=== PATIENT | female | born 1995 | race Caucasian/White ===

== ENCOUNTER 2017-09-27 03:12 | Emergency (ER) | payer MEDICAID ==
[~2017-09-27] VITALS: Ht 160 cm; Wt 102.3 kg
[2017-09-27 03:16] VITALS: BP 145/90
[2017-09-27] MEDS ORDERED: ketorolac tromethamine 15mg/ml inj. IM ONE (03:35)
[2017-09-27] MEDS ORDERED: clindamycin 150mg capsule PO ONE (03:35)
[2017-09-27] MEDS ORDERED: HYDR-3965 PO (03:41)
[2017-09-27] MEDS ORDERED: CLIN150C2 PO (03:41)
== END 2017-09-27 03:54 | disposition home or self-care (01) ==
LOC: ER 03:13
DX: K05.10 Chronic gingivitis, plaque induced (principal); I10 Essential (primary) hypertension; Z98.890 Other specified postprocedural states
CPT/HCPCS: 99283

== ENCOUNTER 2021-01-26 19:52 | Emergency (ER) | payer MEDICAID ==
[~2021-01-26] VITALS: Ht 162.6 cm; Wt 95.5 kg
[2021-01-26 20:35] LABS: BASOPHILS % (AUTO) 0.3 % (0-1); EOSINOPHILS # (AUTO) 0.3 X10'3 (0-0.9); EOSINOPHILS % (AUTO) 2.6 % (0-6); HEMATOCRIT 39.5 % (35.0-45.0); HEMOGLOBIN 13.5 g/dl (12.0-16.0); LYMPHOCYTES # (AUTO) 1.7 X10'3 (1.1-4.8); LYMPHOCYTES % (AUTO) 13.9 % (21-51); MEAN CORPUSCULAR HEMOGLOBIN 28.6 PG (27.0-31.0); MEAN CORPUSCULAR HGB CONC 34.1 g/dL (33.0-36.5); MEAN PLATELET VOLUME 8.6 FL (7.4-10.4); MONOCYTES # (AUTO) 0.8 X10'3 (0-0.9); MONOCYTES % (AUTO) 6.2 % (2-12); NEUTROPHILS # (AUTO) 9.6 X10'3 (1.8-7.7); PLATELET COUNT 247 X10'3 (140-440); RED CELL DISTRIBUTION WIDTH 13.3 % (11.5-14.5); WHITE BLOOD COUNT 12.4 X10'3 (4.5-11.0)
[2021-01-26] MEDS ORDERED: ipratropium/albuterol 3ml nebule NEB PRN (20:45)
[2021-01-26 20:53] LABS: ALANINE AMINOTRANSFERASE 78 U/L (12-78); ALBUMIN 3.8 G/DL (3.4-5.0); ALBUMIN/GLOBULIN RATIO 0.8 (1.1-1.5); ALKALINE PHOSPHATASE 88 IU/L (46-116); ANION GAP 11 (8-16); ASPARTATE AMINO TRANSFERASE 30 U/L (10-37); BILIRUBIN,TOTAL 0.3 MG/DL (0.1-1.0); BLOOD UREA NITROGEN 14 MG/DL (7-18); BUN/CREATININE RATIO 17.7 (6.6-38.0); CHLORIDE 100 MMOL/L (99-107); CREATININE 0.79 MG/DL (0.40-0.90); GLUCOSE 151 MG/DL (70-104); POTASSIUM 3.7 MMOL/L (3.5-5.1); SODIUM 137 MMOL/L (135-145); TOTAL CARBON DIOXIDE 25.8 MMOL/L (24-32); TOTAL PROTEIN 8.4 G/DL (6.4-8.2); eGFR 88 ML/MIN
[2021-01-26] MEDS ORDERED: METH4TAB81 PO (21:22)
[2021-01-26] MEDS ORDERED: ALBU18HF2 INH (21:23)
[2021-01-26] MEDS ORDERED: PRED20TA PO (21:49)
[2021-01-26 23:07] LABS: D-DIMER 0.34 MG/L FEU (0-0.50)
[2021-01-26 23:36] VITALS: BP 149/91
== END 2021-01-26 23:38 | disposition home or self-care (01) ==
LOC: ER 19:53
DX: J20.1 Acute bronchitis due to Hemophilus influenzae (principal); I10 Essential (primary) hypertension
CPT/HCPCS: 36415; 71045; 80053; 83880; 84484; 85025; 85379; 93005; 94640; 94760; 99285

== ENCOUNTER 2021-02-01 15:47 | Emergency (ER) | payer MEDICAID ==
[~2021-02-01] VITALS: Ht 160 cm; Wt 118.0 kg
[~2021-02-01 15:47] MED LIST: ALBU18HF2 INH; PRED20TA PO
[2021-02-01 16:13] VITALS: BP 175/95
[2021-02-01] MEDS ORDERED: OFLO5DRO RIGHTEYE ×2 (16:24→16:31)
== END 2021-02-01 16:44 | disposition home or self-care (01) ==
LOC: ER 15:47
DX: H10.89 Other conjunctivitis (principal); H02.843 Edema of right eye, unspecified eyelid; R05.9 Cough, unspecified; I10 Essential (primary) hypertension; Z98.890 Other specified postprocedural states; Z60.2 Problems related to living alone; Z79.2 Long term (current) use of antibiotics; Z79.899 Other long term (current) drug therapy
CPT/HCPCS: 99283

== ENCOUNTER 2021-02-11 16:34 | Emergency (ER) | payer MEDICAID ==
[~2021-02-11] VITALS: Ht 157.5 cm; Wt 118.2 kg
[~2021-02-11 16:34] MED LIST changes: -PRED20TA PO
[2021-02-11 17:38] LABS: BASOPHILS # (AUTO) 0.1 X10'3 (0-0.2); BASOPHILS % (AUTO) 0.5 % (0-1); EOSINOPHILS # (AUTO) 0.5 X10'3 (0-0.9); EOSINOPHILS % (AUTO) 4.9 % (0-6); HEMATOCRIT 41.2 % (35.0-45.0); HEMOGLOBIN 14.2 g/dl (12.0-16.0); LYMPHOCYTES # (AUTO) 2.3 X10'3 (1.1-4.8); LYMPHOCYTES % (AUTO) 21.7 % (21-51); MEAN CORPUSCULAR HGB CONC 34.5 g/dL (33.0-36.5); MEAN CORPUSCULAR VOLUME 84.1 FL (78-98); MEAN PLATELET VOLUME 8.5 FL (7.4-10.4); MONOCYTES # (AUTO) 0.5 X10'3 (0-0.9); MONOCYTES % (AUTO) 4.4 % (2-12); NEUTROPHILS # (AUTO) 7.4 X10'3 (1.8-7.7); NEUTROPHILS % (AUTO) 68.5 % (42-75); PLATELET COUNT 240 X10'3 (140-440); RED CELL DISTRIBUTION WIDTH 13.2 % (11.5-14.5); WHITE BLOOD COUNT 10.7 X10'3 (4.5-11.0)
[2021-02-11 17:56] LABS: ALANINE AMINOTRANSFERASE 53 U/L (12-78); ALBUMIN 3.5 G/DL (3.4-5.0); ALBUMIN/GLOBULIN RATIO 0.7 (1.1-1.5); ALKALINE PHOSPHATASE 85 IU/L (46-116); ANION GAP 9 (8-16); ASPARTATE AMINO TRANSFERASE 22 U/L (10-37); BILIRUBIN,TOTAL 0.4 MG/DL (0.1-1.0); BLOOD UREA NITROGEN 9 MG/DL (7-18); BUN/CREATININE RATIO 11.8 (6.6-38.0); CALCIUM 8.7 MG/DL (8.5-10.1); CHLORIDE 101 MMOL/L (99-107); CREATININE 0.76 MG/DL (0.40-0.90); GLUCOSE 179 MG/DL (70-104); POTASSIUM 3.9 MMOL/L (3.5-5.1); SODIUM 136 MMOL/L (135-145); TOTAL CARBON DIOXIDE 25.8 MMOL/L (24-32); TOTAL PROTEIN 8.2 G/DL (6.4-8.2); eGFR > 90 ML/MIN
[2021-02-11] MEDS ORDERED: ALBU8HFA PO (19:03)
[2021-02-11 19:18] VITALS: BP 186/102
== END 2021-02-11 19:21 | disposition home or self-care (01) ==
LOC: ER 16:37
DX: J45.901 Unspecified asthma with (acute) exacerbation (principal); Z20.822 Contact with and (suspected) exposure to COVID-19; I10 Essential (primary) hypertension; Z98.891 History of uterine scar from previous surgery; Z79.899 Other long term (current) drug therapy
CPT/HCPCS: 36415; 71045; 80053; 85025; 87635; 99284; C9803

== ENCOUNTER 2021-02-23 13:44 | Emergency (ER) | payer MEDICAID ==
[~2021-02-23] VITALS: Ht 157.5 cm; Wt 118.2 kg
[~2021-02-23 13:44] MED LIST changes: +ALBU8HFA PO
[2021-02-23] MEDS ORDERED: methylPREDNISolone sod succ 125mg/2ml vial IV ONE (13:50)
[2021-02-23] MEDS ORDERED: albuterol 2.5 MG/3 ML nebule CONTNEB PRN (13:50)
[2021-02-23] MEDS ORDERED: normal saline 1000ML IV soln IVB ONE (13:50)
[2021-02-23 14:03] LABS: BASOPHILS % (AUTO) 0.4 % (0-1); EOSINOPHILS # (AUTO) 0.9 X10'3 (0-0.9); EOSINOPHILS % (AUTO) 9.9 % (0-6); HEMATOCRIT 41.8 % (35.0-45.0); HEMOGLOBIN 14.3 g/dl (12.0-16.0); LYMPHOCYTES # (AUTO) 2.2 X10'3 (1.1-4.8); LYMPHOCYTES % (AUTO) 22.5 % (21-51); MEAN CORPUSCULAR HEMOGLOBIN 28.7 PG (27.0-31.0); MEAN CORPUSCULAR HGB CONC 34.1 g/dL (33.0-36.5); MEAN PLATELET VOLUME 8.2 FL (7.4-10.4); MONOCYTES # (AUTO) 0.6 X10'3 (0-0.9); NEUTROPHILS # (AUTO) 5.8 X10'3 (1.8-7.7); NEUTROPHILS % (AUTO) 61.2 % (42-75); PLATELET COUNT 295 X10'3 (140-440); RED BLOOD COUNT 4.97 X10'6 (4.20-5.60); RED CELL DISTRIBUTION WIDTH 13.9 % (11.5-14.5); WHITE BLOOD COUNT 9.6 X10'3 (4.5-11.0)
--- NOTE | 2021-02-23 14:05 | NUR ---
rt at bedside
--- NOTE | 2021-02-23 14:13 | NUR ---
PT NOW SPEAKING IN FULL SENTENCES AFTER START OF CONTINOUS BREATHING TX. RT AT BEDSIDE.
[2021-02-23 14:18] LABS: ALANINE AMINOTRANSFERASE 61 U/L (12-78); ALBUMIN 3.9 G/DL (3.4-5.0); ALBUMIN/GLOBULIN RATIO 0.9 (1.1-1.5); ALKALINE PHOSPHATASE 84 IU/L (46-116); ANION GAP 11 (8-16); ASPARTATE AMINO TRANSFERASE 24 U/L (10-37); BILIRUBIN,TOTAL 0.4 MG/DL (0.1-1.0); BLOOD UREA NITROGEN 11 MG/DL (7-18); BUN/CREATININE RATIO 13.8 (6.6-38.0); CALCIUM 8.8 MG/DL (8.5-10.1); CHLORIDE 101 MMOL/L (99-107); GLUCOSE 107 MG/DL (70-104); POTASSIUM 3.8 MMOL/L (3.5-5.1); SODIUM 137 MMOL/L (135-145); TOTAL CARBON DIOXIDE 24.7 MMOL/L (24-32); TOTAL PROTEIN 8.4 G/DL (6.4-8.2); eGFR 87 ML/MIN
[2021-02-23] MEDS ORDERED: PRED20TA PO (15:38)
[2021-02-23] MEDS ORDERED: albuterol 2.5 MG/3 ML nebule NEB ONE (15:40)
--- NOTE | 2021-02-23 15:45 | NUR ---
DR. DEMARCO AT BEDSIDE.
--- NOTE | 2021-02-23 16:00 | NUR ---
RT AT BEDSIDE
[2021-02-23 16:11] VITALS: BP 144/90
== END 2021-02-23 16:43 | disposition home or self-care (01) ==
LOC: ER 13:44
DX: J45.901 Unspecified asthma with (acute) exacerbation (principal); R05.9 Cough, unspecified; R00.0 Tachycardia, unspecified; I10 Essential (primary) hypertension; Z98.890 Other specified postprocedural states; Z60.2 Problems related to living alone; Z79.899 Other long term (current) drug therapy
CPT/HCPCS: 36415; 71045; 80053; 85025; 94640; 94644; 96374; 99285; J2930; J7030; 94760; A7015

== ENCOUNTER 2021-05-24 23:56 | Emergency (ER) | payer MEDICAID ==
[~2021-05-24] VITALS: Ht 160 cm; Wt 127.3 kg
[~2021-05-24 23:56] MED LIST changes: -ALBU8HFA PO
[2021-05-25] MEDS ORDERED: normal saline 1000ml 1,000 ML IV ONE ×2 (00:30→07:15)
[2021-05-25] MEDS ORDERED: acetaminophen 325mg tablet PO ONE (00:30)
[2021-05-25] MEDS ORDERED: iohexol 300mg/ml 100ml inj. ONE (00:47)
[2021-05-25 00:51] LABS: BASOPHILS % (AUTO) 0.4 % (0-1); EOSINOPHILS # (AUTO) 0.3 X10'3 (0-0.9); EOSINOPHILS % (AUTO) 3.7 % (0-6); HEMATOCRIT 40.3 % (35.0-45.0); HEMOGLOBIN 13.6 g/dl (12.0-16.0); LYMPHOCYTES # (AUTO) 2.5 X10'3 (1.1-4.8); LYMPHOCYTES % (AUTO) 27.9 % (21-51); MEAN CORPUSCULAR HEMOGLOBIN 28.8 PG (27.0-31.0); MEAN CORPUSCULAR HGB CONC 33.9 g/dL (33.0-36.5); MEAN PLATELET VOLUME 8.7 FL (7.4-10.4); MONOCYTES # (AUTO) 0.8 X10'3 (0-0.9); MONOCYTES % (AUTO) 8.7 % (2-12); NEUTROPHILS # (AUTO) 5.3 X10'3 (1.8-7.7); NEUTROPHILS % (AUTO) 59.3 % (42-75); PLATELET COUNT 274 X10'3 (140-440); RED BLOOD COUNT 4.74 X10'6 (4.20-5.60); RED CELL DISTRIBUTION WIDTH 13.7 % (11.5-14.5); WHITE BLOOD COUNT 8.9 X10'3 (4.5-11.0)
[2021-05-25 00:56] LABS: ALANINE AMINOTRANSFERASE 48 U/L (12-78); ALBUMIN 3.6 G/DL (3.4-5.0); ALBUMIN/GLOBULIN RATIO 0.7 (1.1-1.5); ALKALINE PHOSPHATASE 94 IU/L (46-116); ANION GAP 5 (8-16); ASPARTATE AMINO TRANSFERASE 23 U/L (10-37); BILIRUBIN,TOTAL 0.3 MG/DL (0.1-1.0); BLOOD UREA NITROGEN 14 MG/DL (7-18); BUN/CREATININE RATIO 19.7 (6.6-38.0); CALCIUM 9.2 MG/DL (8.5-10.1); CHLORIDE 105 MMOL/L (99-107); CREATININE 0.71 MG/DL (0.40-0.90); GLUCOSE 94 MG/DL (70-104); POTASSIUM 3.9 MMOL/L (3.5-5.1); SODIUM 137 MMOL/L (135-145); TOTAL CARBON DIOXIDE 26.8 MMOL/L (24-32); TOTAL PROTEIN 8.5 G/DL (6.4-8.2); eGFR > 90 ML/MIN
[2021-05-25 01:17] LABS: LIPASE 82 U/L (73-393)
[2021-05-25 01:19] LABS: BETA HCG,QUANTITATIVE 6118 mIU/ml
[2021-05-25 02:03] LABS: URINE HCG POSITIVE (NEG)
[2021-05-25 02:08] LABS: CLARITY,URINE SLIGHTLY CLOUDY (Clear); COLOR,URINE YELLOW (Yellow); GLUCOSE, URINE NEGATIVE (Neg); KETONES,URINE TRACE mg/dl (Neg); LEUKOCYTE ESTERASE ,URINE NEGATIVE (Neg); NITRITES, URINE NEGATIVE (Neg); OCCULT BLOOD,URINE MODERATE (Neg); PH,URINE 5.5 (4.8-8.0); PROTEIN,URINE NEGATIVE (Neg); UROBILINOGEN,URINE 0.2 E.U/dL (0.2-1.0)
[2021-05-25 02:10] LABS: UA COLLECTION TYPE CLN CATCH MIDSTREAM
[2021-05-25 02:15] LABS: RBC,URINE 20-50 /HPF (0-2)
[2021-05-25 02:16] LABS: BACTERIA,URINE NONE SEEN /HPF (Neg); MUCUS STRANDS MODERATE /LPF (Neg); SQUAMOUS EPITHELIAL CELL,UR MANY /LPF (FEW)
[2021-05-25] MEDS ORDERED: piperacillin/tazo 3.375gm/50ml 50 ML IV ONE (03:10)
[2021-05-25 08:40] VITALS: BP 163/82
== END 2021-05-25 08:49 | disposition short-term general hospital (02) ==
LOC: ER 23:56
DX: O07.4 Failed attempted termination of pregnancy without complication (principal); Z20.822 Contact with and (suspected) exposure to COVID-19; R50.9 Fever, unspecified; R11.0 Nausea; I10 Essential (primary) hypertension; J45.909 Unspecified asthma, uncomplicated; Z98.891 History of uterine scar from previous surgery; Z79.899 Other long term (current) drug therapy
CPT/HCPCS: 36415; 74177; 76801; 80053; 81001; 81025; 83605; 83690; 84145; 84702; 85025; 87040; 87635; 96361; 96365; 99285; C9803; J2543; J7030; Q9967

== ENCOUNTER 2022-03-02 15:15 | Emergency (ER) | payer MEDICAID ==
[~2022-03-02] VITALS: Ht 160 cm; Wt 122.0 kg
[2022-03-02 16:19] VITALS: BP 148/75
== END 2022-03-02 16:56 | disposition home or self-care (01) ==
LOC: ER 15:15
DX: U07.1 COVID-19 (principal); R05.9 Cough, unspecified; R50.9 Fever, unspecified; H92.02 Otalgia, left ear; I10 Essential (primary) hypertension; J45.909 Unspecified asthma, uncomplicated; Z98.890 Other specified postprocedural states; Z60.2 Problems related to living alone; Z79.899 Other long term (current) drug therapy
CPT/HCPCS: 87502; 87503; 87635; 99283; C9803

== ENCOUNTER 2023-06-09 19:21 | Emergency (ER) | payer MEDICAID ==
[~2023-06-09] VITALS: Ht 160 cm; Wt 122.0 kg
[2023-06-09 19:32] VITALS: BP 159/99; PULSE 89; RESP 16; TEMP 98.2; O2SAT 99
[2023-06-09 19:50] LABS: BASOPHILS # (AUTO) 0.1 X10'3 (0-0.2); BASOPHILS % (AUTO) 0.5 % (0-1); EOSINOPHILS # (AUTO) 0.3 X10'3 (0-0.9); EOSINOPHILS % (AUTO) 2.1 % (0-6); HEMATOCRIT 41.6 % (35.0-45.0); HEMOGLOBIN 13.9 g/dl (12.0-16.0); LYMPHOCYTES # (AUTO) 2.7 X10'3 (1.1-4.8); LYMPHOCYTES % (AUTO) 21.9 % (21-51); MEAN CORPUSCULAR HEMOGLOBIN 29.4 PG (27.0-31.0); MEAN CORPUSCULAR HGB CONC 33.4 g/dL (33.0-36.5); MEAN CORPUSCULAR VOLUME 88.1 FL (78-98); MEAN PLATELET VOLUME 9.2 FL (7.4-10.4); MONOCYTES # (AUTO) 0.8 X10'3 (0-0.9); MONOCYTES % (AUTO) 6.1 % (2-12); NEUTROPHILS # (AUTO) 8.5 X10'3 (1.8-7.7); NEUTROPHILS % (AUTO) 69.4 % (42-75); PLATELET COUNT 280 X10'3 (140-440); RED BLOOD COUNT 4.72 X10'6 (4.20-5.60); RED CELL DISTRIBUTION WIDTH 13.7 % (11.5-14.5); WHITE BLOOD COUNT 12.2 X10'3 (4.5-11.0)
[2023-06-09 20:00] LABS: ALANINE AMINOTRANSFERASE 166 U/L (12-78); ALBUMIN 3.9 G/DL (3.4-5.0); ALBUMIN/GLOBULIN RATIO 0.9 (1.1-1.5); ALKALINE PHOSPHATASE 92 IU/L (46-116); ANION GAP 11 (8-16); ASPARTATE AMINO TRANSFERASE 41 U/L (10-37); BILIRUBIN,TOTAL 0.4 MG/DL (0.1-1.0); BLOOD UREA NITROGEN 14 MG/DL (7-18); BUN/CREATININE RATIO 16.9 (10.0-20.0); CALCIUM 9.1 MG/DL (8.5-10.1); CHLORIDE 104 MMOL/L (99-107); CREATININE 0.83 MG/DL (0.40-0.90); GLUCOSE 134 MG/DL (70-104); LIPASE 31 U/L (16-77); SODIUM 141 MMOL/L (135-145); TOTAL CARBON DIOXIDE 26.2 MMOL/L (24-32); TOTAL PROTEIN 8.4 G/DL (6.4-8.2); eCRCL 83 ML/MIN; eGFR 82 ML/MIN
[2023-06-09 21:55] LABS: BILIRUBIN,URINE NEGATIVE (Neg); CLARITY,URINE CLOUDY (Clear); COLOR,URINE YELLOW (Yellow); GLUCOSE, URINE NEGATIVE (Neg); KETONES,URINE NEGATIVE (Neg); LEUKOCYTE ESTERASE ,URINE MODERATE (Neg); NITRITES, URINE POSITIVE (Neg); OCCULT BLOOD,URINE LARGE (Neg); PROTEIN,URINE 100 mg/dl (Neg); URINE HCG NEGATIVE (NEG); UROBILINOGEN,URINE 0.2 E.U/dL (0.2-1.0)
[2023-06-09 22:02] LABS: UA COLLECTION TYPE VOIDED
[2023-06-09 22:08] LABS: RBC,URINE 20-50 /HPF (0-2); SQUAMOUS EPITHELIAL CELL,UR MODERATE /LPF (FEW); WBC,URINE TNTC /HPF (0-4)
[2023-06-09 22:09] LABS: WBC CLUMPS,URINE FEW /HPF (NEGATIVE)
[2023-06-09 22:10] LABS: BACTERIA,URINE 2+ /HPF (Neg)
[2023-06-09] MEDS ORDERED: PHEN-716 PO (22:37)
[2023-06-09] MEDS ORDERED: CEPH-585 PO (22:37)
[2023-06-09] MEDS: CefTRIAXone 1000mg IM Kit (w/lidocaine diluent) IM ONE (22:37)
[2023-06-09] MEDS: phenazopyridine 100mg tablet PO ONE (22:38)
== END 2023-06-09 22:46 | disposition home or self-care (01) ==
LOC: ER 19:22
DX: N39.0 Urinary tract infection, site not specified (principal); I10 Essential (primary) hypertension; J45.909 Unspecified asthma, uncomplicated; Z79.899 Other long term (current) drug therapy; Z98.890 Other specified postprocedural states
CPT/HCPCS: 36415; 80053; 81001; 81025; 83690; 85025; 87077; 87088; 87186; 96372; 99283; J0696

== ENCOUNTER 2023-11-03 15:23 | Emergency (ER) | payer OTHER, MEDICAID ==
[~2023-11-03] VITALS: Ht 157.5 cm; Wt 111.0 kg
[~2023-11-03 15:23] MED LIST changes: +PHEN-716 PO
[2023-11-03 15:28] VITALS: BP 155/87; PULSE 95; O2SAT 99
[2023-11-03] MEDS ORDERED: ketorolac trometh 15mg/ml vial 15 MG/ML ML IM ONE (16:20)
[2023-11-03] MEDS ORDERED: HYDR-3965 PO (16:20)
[2023-11-03] MEDS: ketorolac trometh 30MG/ML vial 30 MG/ML VIAL IM ONE (16:50)
[2023-11-03 16:51] VITALS: RESP 16
[2023-11-03] MEDS: HYDROcodone/acetaminophen 10/325mg tab PO ONE (16:51)
[2023-11-03 17:28] VITALS: TEMP 97.7
== END 2023-11-03 17:30 | disposition home or self-care (01) ==
LOC: ER 15:24
DX: M54.50 Low back pain, unspecified (principal); I10 Essential (primary) hypertension; J45.909 Unspecified asthma, uncomplicated; Z79.899 Other long term (current) drug therapy; Z98.890 Other specified postprocedural states
CPT/HCPCS: 72100; 72220; 96372; 99284; J1885

== ENCOUNTER 2024-04-21 17:08 | Emergency (ER) | payer MEDICAID, OTHER ==
[~2024-04-21] VITALS: Ht 157.5 cm; Wt 104.5 kg
[2024-04-21] MEDS ORDERED: IBUP-1986 PO (18:20)
[2024-04-21] MEDS ORDERED: CEPH-585 PO (18:20)
[2024-04-21 18:30] VITALS: BP 134/78; PULSE 84; RESP 18; TEMP 97.7; O2SAT 98
== END 2024-04-21 18:32 | disposition home or self-care (01) ==
LOC: ER 17:09
DX: L03.031 Cellulitis of right toe (principal); J45.909 Unspecified asthma, uncomplicated; I10 Essential (primary) hypertension; Z91.041 Radiographic dye allergy status; Z91.013 Allergy to seafood; Z79.899 Other long term (current) drug therapy; Z98.890 Other specified postprocedural states; Z60.2 Problems related to living alone
CPT/HCPCS: 99283